=== PATIENT | male | born 1995 | race Caucasian/White ===

== ENCOUNTER → 2016-04-16 | Outpatient (CLI) | payer BC ==
--- NOTE | 2016-04-16 13:48 | DIAGNOSTIC IMAGING REPORT ---
ULTRASOUND LEFT GROIN NONVASCULAR CLINICAL HISTORY: Left groin pain and lump. COMPARISON STUDY: No priors. FINDINGS: Real-time, grayscale, and color flow sonography of the left groin is performed. There is no sonographic evidence of inguinal hernia. No hernia could be elicited by having the patient perform the Valsalva maneuver. There is an ovoid hypoechoic nodule seen within the left inguinal canal which measures 1.2 x 0.5 x 0.9 cm. No significant internal flow is identified. A normal left testis was present in the scrotum. No lymphadenopathy is seen. IMPRESSION: 1. There is an indeterminant 1.2 cm nonvascular hypoechoic nodule present within the inguinal canal. This may represent a small granuloma but is of indeterminant etiology and significance. Precautionary six-month follow-up is recommended for reassessment or sooner if this changes clinically. 2. No inguinal hernia was identified. Electronically signed by: Chencho Hernandes M.D. 04/16/2016 1:47 PM Dictated Date/Time: 04/16/2016 1:41 PM
== END | disposition home or self-care (01) ==
LOC: C.ULTR 13:09
PROVIDERS: ATTEND Family Medicine
DX: R10.30 Lower abdominal pain, unspecified (principal); R93.5 Abnormal findings on diagnostic imaging of other abdominal regions, including retroperitoneum

== ENCOUNTER → 2016-05-01 | Outpatient (CLI) | payer BC ==
--- NOTE | 2016-05-01 15:01 | DIAGNOSTIC IMAGING REPORT ---
ADDENDUM The questioned abnormality within the anterior horn of the medial meniscus may represent volume averaging of the normal structures rather than a meniscal tear. Clinical correlation recommended to assess for pain at this location. Electronically signed by: Jalil Gomez M.D. 05/01/2016 5:22 PM Dictated Date/Time: 05/01/2016 5:21 PM ORIGINAL REPORT LEFT KNEE MRI HISTORY: LEFT KNEE PAIN COMPARISON STUDY: None. TECHNIQUE: Multiplanar multisequence MRI of the left knee was performed according to standard department protocol without the use of contrast. FINDINGS: Menisci: The lateral meniscus is intact. Best seen on coronal sequence image 12 and axial series image 24 there is a focal defect at the anterior horn of the medial meniscus. Medial to the defect there is a 7 mm oval-shaped hypointense structure. This favors the slightly displaced meniscal fragment. Ligaments: The anterior and posterior cruciate ligaments are intact. The medial and lateral collateral ligaments are normal in appearance. Extensor mechanism: The quadriceps tendon and patellar ligament are intact. Articular cartilage and bone: The articular cartilage is intact, and normal marrow signal intensity is seen throughout the imaged osseous structures. Joint effusion: None. Soft tissues: Intact. IMPRESSION: There is suggestion of a tear through the anterior horn of the medial meniscus with a 7 mm adjacent detached fragment at the anterior medial aspect of the joint space as described above. Electronically signed by: Jalil Gomez M.D. 05/01/2016 3:00 PM Dictated Date/Time: 05/01/2016 2:52 PM
== END | disposition home or self-care (01) ==
LOC: C.MRIBC 12:38
PROVIDERS: ATTEND Orthopaedic Surgery
DX: M25.562 Pain in left knee (principal)